=== PATIENT | female | born 1980 | race American Indian/Alaskan Native ===

== ENCOUNTER 2021-03-31 12:45 | Emergency (ER) | payer OTHER ==
[2021-03-31 13:56] VITALS: BP 124/82
--- NOTE | 2021-03-31 13:58 | XRay Report ---
Right ankle-3 views INDICATION: rt ankle injury. COMPARISON: None. IMPRESSION: No acute osseous abnormality. Mild generalized soft tissue swelling about the ankle lisandra ecially laterally. Normal alignment. No significant DJD. Signer Name: Tony Sweeney MD Signed: 03/31/2021 1:54 PM Workstation Name: [id number]
--- NOTE | 2021-03-31 14:15 | Emergency Department Report ---
ED Lower Extremity HPI - General Chief Complaint: Extremity Injury, Lower Stated Complaint: TWISTED ANKLE Time Seen by Provider: 03/31/21 13:18 Source: patient, family Mode of arrival: Ambulatory Limitations: Language Barrier - History of Present Illness Initial Comments: The patient was evaluated in the emergency department for symptoms described in the history of present illness. He/she was evaluated in the context of the global COVID-19 pandemic, which necessitated consideration that the patient might be at risk for infection with the virus that causes COVID-19. Institutional protocols and algorithms that pertain to the evaluation of patients at risk for COVID-19 are in a state of rapid change based on information released by regulatory bodies including the CDC and federal and state organizations. These policies and algorithms were followed during the patient's care in the emergency department. Please note that these policies, procedures and recommendations changed on a rapid basis. 40-year-old female presents to the emergency room complaining of right ankle pain. Was reported that she was at work yesterday and she had injured her right ankle. She comes in with swelling bruising and pain. States the pain is worse when she bears weight or you touches it. Patient states that she had put her foot in hot water thinking that would help her her pain. Patient is taking nothing for her pain. - Related Data Previous Rx's Medication Instructions Recorded Last Taken Type Ibuprofen [Motrin 600 MG tab] 600 mg PO Q8H PRN #30 tablet 03/31/21 Unknown Rx Allergies Allergy/AdvReac Type Severity Reaction Status Date / Time No Known Allergies Allergy Unverified 03/31/21 13:17 ED Review of Systems ROS: Stated complaint: TWISTED ANKLE Other details as noted in HPI Comment: All other systems reviewed and negative ED Past Medical Hx - Past Medical History Previous Medical History?: No - Surgical History Past Surgical History?: No - Medications Home Medications: Home Medications Medication Instructions Recorded Confirmed Last Taken Type Ibuprofen [Motrin 600 MG tab] 600 mg PO Q8H PRN #30 tablet 03/31/21 Unknown Rx ED Physical Exam - General Limitations: Language Barrier General appearance: alert, in no apparent distress - Head Head exam: Present: atraumatic, normocephalic - Eye Eye exam: Present: normal appearance - ENT ENT exam: Present: mucous membranes moist - Neck Neck exam: Present: normal inspection - Respiratory Respiratory exam: Present: normal lung sounds bilaterally. Absent: respiratory distress - Cardiovascular Cardiovascular Exam: Present: regular rate, normal rhythm. Absent: systolic murmur, diastolic murmur, rubs, gallop - GI/Abdominal GI/Abdominal exam: Present: soft, normal bowel sounds - Extremities Exam Extremities exam: Present: normal inspection - Expanded Lower Extremity Exam Right Hip exam: Present: normal inspection, full ROM Upper Leg exam: Present: normal inspection, full ROM Knee exam: Present: normal inspection, full ROM Lower Leg exam: Present: normal inspection, full ROM Ankle exam: Present: full ROM, tenderness, swelling Foot/Toe exam: Present: full ROM, tenderness, swelling, ecchymosis. Absent: deformity, crepidus Neuro vascular tendon exam: Present: no vascular compromise Gait: Positive: observed and limited by pain - Back Exam Back exam: Present: normal inspection - Neurological Exam Neurological exam: Present: alert, oriented X3 - Psychiatric Psychiatric exam: Present: normal affect, normal mood - Skin Skin exam: Present: warm, dry, intact, normal color. Absent: rash ED Course Vital Signs 03/31/21 03/31/21 13:22 13:54 Temperature 97.4 F L 99.1 F Pulse Rate 97 H 79 Respiratory 18 16 Rate Blood Pressure 139/84 124/82 O2 Sat by Pulse 97 98 Oximetry ED Lower Extremity MDM - Radiology Data Radiology results: report reviewed [address] [address] XRay Report Signed Patient: MARICHUY NOEL MR#: [id number] : 1980 Acct:[id number] Age/Sex: 40 / F ADM Date: 03/31/21 Loc: ED Attending Dr: Ordering Physician: MAMIE GUO Date of Service: 03/31/21 Procedure(s): XR ankle 3+V RT Accession Number(s): [id number] cc: MAMIE GUO Fluoro Time In Minutes: Right ankle-3 views INDICATION: rt ankle injury. COMPARISON: None. IMPRESSION: No acute osseous abnormality. Mild generalized soft tissue swelling about the ankle especially laterally. Normal alignment. No significant DJD. Signer Name: Tony Sweeney MD Signed: 03/31/2021 1:54 PM Workstation Name: [id number] Transcribed By: JULIEN Dictated By: Tony Sweeney MD Electronically Authenticated By: Tony Sweeney MD Signed Date/Time: 03/31/21 1354 DD/ 52 TD/TT: Print Cancel - Medical Decision Making 40-year-old female presents to the emergency room complaining of right ankle pain. Was reported that she was at work yesterday and she had injured her right ankle. She comes in with swelling bruising and pain. States the pain is worse when she bears weight or you touches it. Patient states that she had put her foot in hot water thinking that would help her her pain. Patient is taking nothing for her pain. X-ray shows no fracture dislocation does show moderate amount of swelling. Exam as swelling pulses are intact ecchymotic bruising on the right lateral side. Capillary refills less than 3 seconds. Full range of motion. Patient be placed in a ankle stirrup. Encouraged to use ice not heat for the next 24 hours. Elevate and rest. Critical care attestation.: If time is entered above; I have spent that time in minutes in the direct care of this critically ill patient, excluding procedure time. ED Disposition Clinical Impression: Inversion sprain of right ankle Disposition: 01 HOME / SELF CARE / HOMELESS Is pt being admited?: No Does the pt Need Aspirin: No Condition: Stable Instructions: RICE Therapy for Routine Care of Injuries, [id number] Additional Instructions: X-ray shows no dislocation no fracture. Does show that she have some swelling and I noticed some bruising on her foot. I am placing her in a ankle stirrup elevate ice rest. Follow-up with your primary care provider or orthopedist if you have any further concerns. Take Tylenol ibuprofen for pain. Prescriptions: Ibuprofen [Motrin 600 MG tab] 600 mg PO Q8H PRN #30 tablet PRN Reason: Pain Referrals: NANO STONER MD [Staff Physician] - 3-5 Days Forms: Accompanied Note, Work/School Release Form(ED) Time of Disposition: 14:24
== END 2021-03-31 14:45 | disposition home or self-care (01) ==
LOC: ED 12:45
DX: S93.401A Sprain of unspecified ligament of right ankle, initial encounter (principal); X58.XXXA Exposure to other specified factors, initial encounter; Y93.89 Activity, other specified; Y92.89 Other specified places as the place of occurrence of the external cause; Y99.8 Other external cause status
CPT/HCPCS: 99283